=== PATIENT | female | born 1945 | race Caucasian/White ===

== ENCOUNTER 2021-06-29 07:35 | Day surgery (SDC) | payer BC, OTHER, SELFPAY ==
[~2021-06-29] VITALS: Ht 152.4 cm; Wt 62.6 kg
[~2021-06-29 07:35] MED LIST: CEFAZOLIN SOD 1 GM in D5W 50 ML IV ONE
[2021-06-29] MEDS ORDERED: PROPOFOL 200MG/ 20ML VIAL (DIPRIVAN) IV ONE (09:21)
[2021-06-29] MEDS ORDERED: DEXAMETHASONE SOD PHOSPHATE 4 MG/ML VIAL IVP ONE (09:21)
[2021-06-29] MEDS ORDERED: BUPIVACAINE /EPINEPHRINE/PF 0.25% 30 ML VIAL INJ ONE (09:21)
[2021-06-29] MEDS ORDERED: ONDANSETRON HCL 4 MG/2 ML VIAL IVP ONE (09:21)
[2021-06-29] MEDS ORDERED: GLYCOPYRROLATE 0.2 MG/ML VIAL IJ ONE (09:21)
[2021-06-29] MEDS ORDERED: HEPARIN SODIUM, PORCINE 10,000 UNITS/ 10 ML VIAL MC ONE (09:21)
[2021-06-29] MEDS ORDERED: fentaNYL CITRATE/PF 100 MCG/2 ML AMP IVP ONE (09:21)
[2021-06-29] MEDS ORDERED: LR 1,000 ML IV.SOLN IV ONE (09:21)
[2021-06-29] MEDS ORDERED: SEVOFLURANE 15 MIN GAS INH ONE (09:21)
[2021-06-29] MEDS ORDERED: WATER FOR IRRIGATION,STERILE 4,000 ML IRRIG.SOLN IR ONE (09:21)
[2021-06-29] MEDS ORDERED: LIDOCAINE 1% 10 MG/ML, 20 ML MDV INJ ONE (09:21)
[2021-06-29] MEDS ORDERED: MIDAZOLAM HCL 5 MG/5 ML VIAL IVP ONE (09:21)
[2021-06-29] MEDS ORDERED: NS 1000 ML IV.SOLN IV ONE (09:21)
[2021-06-29] MEDS ORDERED: MEPERIDINE HCL/PF 25 MG/ML DISP.SYRIN IVP PRN (10:15)
[2021-06-29] MEDS ORDERED: METOCLOPRAMIDE HCL 10 MG/2 ML VIAL IVP PRN (10:15)
[2021-06-29] MEDS ORDERED: MIDAZOLAM HCL 2 MG/2 ML VIAL (VERSED) IVP PRN (10:15)
[2021-06-29] MEDS ORDERED: LR 1,000 ML IV SCH (10:15)
[2021-06-29] MEDS ORDERED: HYDROmorphone 1 MG/ML INJ. CARTRIDGE IVP PRN ×2 (10:15)
[2021-06-29] MEDS ORDERED: HYDROcodone/ACETAMIN 5-325 MG TAB (NORCO/ VICODIN) PO PRN (11:15)
[2021-06-29] MEDS ORDERED: D5/0.45 NS 1,000 ML IV SCH (11:15)
[2021-06-29 16:43] VITALS: BP_SYST 147
== END 2021-06-29 16:05 | disposition home or self-care (01) ==
LOC: SDS 07:35 → SMU 07:36 → SDS 16:05
PROVIDERS: ATTEND Colon & Rectal Surgery
DX: Z45.2 Encounter for adjustment and management of vascular access device (principal); C56.9 Malignant neoplasm of unspecified ovary; I10 Essential (primary) hypertension; E11.9 Type 2 diabetes mellitus without complications; Z79.899 Other long term (current) drug therapy
CPT/HCPCS: 36556; 71045; 77001; C1788; J0690; J1100; J1644; J2001; J2250; J2405; J2704; J3010; J3490 ×2; J7030; J7060; J7120; U0003; 76000